=== PATIENT | female | born 1955 | race Two or more races ===

== ENCOUNTER 2018-12-25 08:00 | Outpatient (CLI) | payer OTHER | END 2018-12-25 15:00 | disposition home or self-care (01) | LOC: LAB 08:00 | DX: E11.9 Type 2 diabetes mellitus without complications (principal); E03.8 Other specified hypothyroidism; I10 Essential (primary) hypertension; E78.2 Mixed hyperlipidemia; M81.0 Age-related osteoporosis without current pathological fracture ==

== ENCOUNTER 2018-12-25 09:37 | Outpatient (CLI) | payer OTHER | END 2018-12-25 09:47 | disposition home or self-care (01) | LOC: MAMO-SONO 09:37 | DX: N63.11 Unspecified lump in the right breast, upper outer quadrant (principal); Z12.31 Encounter for screening mammogram for malignant neoplasm of breast; Z87.898 Personal history of other specified conditions ==

== ENCOUNTER → 2018-12-25 | Outpatient (CLI) | payer OTHER | END | disposition home or self-care (01) | LOC: NUCLEAR 10:30 | DX: M81.0 Age-related osteoporosis without current pathological fracture (principal) ==

== ENCOUNTER 2019-11-03 15:37 | Outpatient (CLI) | payer OTHER | END 2019-11-03 15:38 | disposition home or self-care (01) | LOC: LAB 15:37 | PROVIDERS: ATTEND Internal Medicine Cardiovascular Disease | DX: E03.8 Other specified hypothyroidism (principal); I10 Essential (primary) hypertension; E11.9 Type 2 diabetes mellitus without complications; E78.2 Mixed hyperlipidemia; E55.9 Vitamin D deficiency, unspecified ==

== ENCOUNTER 2020-04-19 11:32 | Outpatient (CLI) | payer OTHER | END 2020-04-19 11:48 | disposition home or self-care (01) | LOC: MAMO-SONO 11:32 | PROVIDERS: ATTEND Internal Medicine Cardiovascular Disease | DX: R92.0 Mammographic microcalcification found on diagnostic imaging of breast (principal); N64.59 Other signs and symptoms in breast ==

== ENCOUNTER 2021-12-13 10:34 | Outpatient (CLI) | payer OTHER | END 2021-12-13 10:35 | disposition home or self-care (01) | LOC: MAMO-SONO 10:34 | PROVIDERS: ATTEND Internal Medicine Cardiovascular Disease | DX: N63.11 Unspecified lump in the right breast, upper outer quadrant (principal); Z12.31 Encounter for screening mammogram for malignant neoplasm of breast ==

== ENCOUNTER 2021-12-13 11:04 | Outpatient (CLI) | payer OTHER | END 2021-12-13 11:05 | disposition home or self-care (01) | LOC: NUCLEAR 11:04 | PROVIDERS: ATTEND Internal Medicine Cardiovascular Disease | DX: M81.0 Age-related osteoporosis without current pathological fracture (principal); E55.9 Vitamin D deficiency, unspecified ==

== ENCOUNTER → 2025-01-06 | Outpatient (CLI) | payer OTHER | END | disposition home or self-care (01) | LOC: MAMO-SONO 09:49 | PROVIDERS: ATTEND Internal Medicine Cardiovascular Disease | DX: N60.11 Diffuse cystic mastopathy of right breast (principal); N60.12 Diffuse cystic mastopathy of left breast; Z12.31 Encounter for screening mammogram for malignant neoplasm of breast ==

== ENCOUNTER → 2025-01-07 07:18 | Outpatient (CLI) | payer OTHER ==
[2025-01-07 08:27] LABS: BASO % 0.3 % (0.1-1.2); EOS # 0.18 (0.04-0.54); EOS % 3.0 % (0.7-7.0); LYMPH # 1.70 (1.18-3.74); LYMPH % 28.1 % (19.3-53.1); MEAN PLATELET VOLUME 9.90 fl (9.4-12.4); MONO # 0.40 (0.24-0.82); MONO % 6.6 % (4.7-12.5); NEUT # 3.72 (1.56-6.13); NEUT % 61.5 % (34.0-71.1); RED CELL DISTRIBUTION WIDTH 12.3 % (11.6-14.4)
[2025-01-07 08:38] LABS: URINE APPEARANCE Clear; URINE BILIRRUBIN Negative (NEGATIVE); URINE COLOR Dark Yellow; URINE GLUCOSE Negative (NEGATIVE); URINE KETONE Trace (NEGATIVE); URINE LEUKOCYTE Negative; URINE NITRATE Negative; URINE PROTEIN Trace (NEGATIVE); URINE UROBILINOGEN 1.0 E.U./dl
[2025-01-07 08:42] LABS: URINE BACTERIA 124.7 uL (0.0-1933); URINE EPITHELIAL CELLS 53.3 uL (0.0-38.8); URINE RBC 50.3 uL (0.0-20.8); URINE WBC 4.7 uL (0.0-23.2)
[2025-01-07 08:49] LABS: ALT/SGPT 19.0 U/L (12-78); AST/SGOT 14.0 U/L (15-37); BILIRUBIN TOTAL 0.46 mg/dL (0.3-1.2); BUN CREA RATIO 19.0 (7.0-25.0); CHOL HDL RATIO 3.4 (0-5.0); CREATININE SERUM 0.77 mg/dL (0.55-1.02); GFR 73.9; GLOBULINA 3.4 G/DL (2.4-3.5); GLUCOSE FASTING 148.0 mg/dL (65-100); HDL 70.0 mg/dl (40-60); LDL 132.0 mg/dl (0-130); OSMOLALITY SERUM 289.0 MOSM/KG (275-295); T4 TOTAL 6.67 UG/DL (4.8-13.9); TSH 1.89 uIU/mL (0.358-3.74); VLDL 38.0 (0-39)
[2025-01-07 08:51] LABS: TYPE CELLS SQUAMOUS; URINE BLOOD TRACE; URINE CAST 0.43 uL (0.0-1.40); URINE CRYSTALS FEW /HPF; URINE MUCUS SCANT
== END | disposition home or self-care (01) ==
LOC: LAB 07:18
PROVIDERS: ATTEND Internal Medicine Cardiovascular Disease
DX: E03.9 Hypothyroidism, unspecified (principal); I10 Essential (primary) hypertension; E78.2 Mixed hyperlipidemia; R73.03 Prediabetes